=== PATIENT | female | born 1950 | race Caucasian/White ===

== ENCOUNTER → 2018-06-30 | Outpatient (CLI) | payer OTHER | LOC: FIMAGING 10:01 | PROVIDERS: ATTEND Neurological Surgery | DX: M51.16 Intervertebral disc disorders with radiculopathy, lumbar region (principal); M48.062 Spinal stenosis, lumbar region with neurogenic claudication; M51.27 Other intervertebral disc displacement, lumbosacral region; M51.36 Other intervertebral disc degeneration, lumbar region; M43.16 Spondylolisthesis, lumbar region ==

== ENCOUNTER 2018-07-12 10:31 | Inpatient (IN) | payer OTHER ==
--- NOTE | 2018-07-12 06:42 | PDHPUP ---
History & Physical Update H&P update statement: This history and physical update is based on an assessment of the patient which was completed after admission or registration (within 24 hours), but prior to the surgery/procedure. H&P update: H&P reviewed & patient examined, no change in patient's condition since H&P completed
[2018-07-12] MEDS ORDERED: GABAPENTIN 300 MG CAP PO ONE (10:45)
[2018-07-12] MEDS ORDERED: ceFAZolin 2 GM/DEXTROSE 100 ML IV ONE (10:45)
[2018-07-12] MEDS ORDERED: ACETAMINOPHEN 500 MG TAB PO ONE (10:45)
[2018-07-12] MEDS ORDERED: LIDOCAINE 1% 2 ML INJ ID PRN (10:46)
[2018-07-12] MEDS ORDERED: LR 1,000 ML IV ONE (10:46)
[2018-07-12] MEDS ORDERED: MIDAZOLAM 2 MG/2 ML VIAL IVP ONE (11:39)
--- NOTE | 2018-07-12 11:39 | PDANEPAE ---
ANE History of Present Illness low back pain right radicular pain ANE Past Medical History - Cardiovascular History Hx Hypertension: Yes Hx Arrhythmias: No Hx Chest Pain: No Hx Coronary Artery / Peripheral Vascular Disease: No Hx CHF / Valvular Disease: No Hx Palpitations: No - Pulmonary History Hx COPD: No Hx Asthma/Reactive Airway Disease: No Hx Recent Upper Respiratory Infection: No Hx Oxygen in Use at Home: No Hx Sleep Apnea: No Sleep Apnea Screening Result - Last Documented: Negative - Neurologic History Hx Cerebrovascular Accident: No Hx Seizures: No Hx Dementia: No - Endocrine History Hx Diabetes: No Hypothyroid: No Hyperthyroid: No - Renal History Hx Renal Disorders: No - Liver History Hx Hepatic Disorders: No - Neurological & Psychiatric Hx Hx Neurological and Psychiatric Disorders: Yes Neurological / Psychiatric History Comment: n/t in right leg, sciatica - Cancer History Hx Cancer: Yes Cancer History Comment: melanoma mohs procedure - Congenital Disorder History Hx Congenital Disorders: No - GI History Hx Gastrointestinal Disorders: No - Other Health History Other Health History: none - Chronic Pain History Chronic Pain: Yes (chronic back pain) - Surgical History Prior Surgeries: none in last 5 yrs. lumbar lami/cholecytectomy 2006 ANE Review of Systems Review of systems is: negative Review of Systems: - Exercise capacity Exercise capacity: >=4 METS METS (RN): 5 METS ANE Patient History - Allergies Allergies/Adverse Reactions: No Allergies Allergy (Verified 07/07/18 15:48) - Home Medications Home Medications: Acetaminophen [Tylenol ES 500 mg (*)] 500 mg PO Q6HRS PRN 07/07/18 [Last Taken 07/12/18 01:00] Atenolol [Tenormin 25 mg (*)] 25 mg PO DAILY 07/07/18 [Last Taken 07/12/18 07:00 ] Gabapentin [Neurontin 300 MG (*)] 300 mg PO HS 07/07/18 [Last Taken 07/11/18 19: 00] Hydrocodone/APAP 5/325 [Crane 5/325 (*)] 1 tab PO Q6HRS PRN 07/07/18 [Last Taken 07/12/18 01:00] Leflunomide [Arava 20 mg (*)] 20 mg PO DAILY 07/07/18 [Last Taken 07/04/18] Meloxicam 7.5 mg PO BID PRN 07/07/18 [Last Taken 1 Week Ago ~07/05/18] Tofacitinib Citrate [Xeljanz] 5 mg PO BID 07/07/18 [Last Taken 07/09/18] Tretinoin [Retin-A] 1 delia TP HS 07/11/18 [Last Taken 1 Week Ago ~07/05/18] - NPO status NPO Status: no food or drink >8 hours NPO Since - Liquids (Date): 07/12/18 NPO Since - Liquids (Time): 08:00 NPO Since - Solids (Date): 07/12/18 NPO Since - Solids (Time): 01:00 - Anes Hx Anes Hx: no prior problems - Smoking Hx Smoking Status: Never smoked - Alcohol Use Alcohol Use: Occasionally (2/wk) - Family Anes Hx Family Anes Hx: none Family Hx Anesthesia Complications: none ANE Labs/Vital Signs - Vital Signs Vital Signs: reviewed preoperatively; see RN documention for details Blood Pressure: 163/98 Heart Rate: 62 Respiratory Rate: 16 O2 Sat (%): 95 Height: 175.26 cm Weight: 68.946 kg ANE Physical Exam - Airway Neck exam: FROM Mallampati Score: Class 2 Mouth exam: normal dental/mouth exam - Pulmonary Pulmonary: no respiratory distress - Cardiovascular Cardiovascular: regular rate and rhythym - ASA Status ASA Status: II ANE Anesthesia Plan Anesthesia Plan: general endotracheal anesthesia
[2018-07-12] MEDS ORDERED: HYDROCODONE/APAP 5/325 TAB PO PRN (11:52)
[2018-07-12] MEDS ORDERED: NALOXONE HCL 0.4 MG/ML INJ IVP PRN ×2 (11:54→15:59)
[2018-07-12] MEDS ORDERED: ONDANSETRON 4 MG/2 ML VIAL IVP PRN ×2 (11:54→15:59)
[2018-07-12] MEDS ORDERED: ZOLPIDEM TARTRATE 5 MG TAB PO PRN (11:54)
[2018-07-12] MEDS ORDERED: POLYETHYLENE GLYCOL 3350 17 GM PKT PO PRN (11:54)
[2018-07-12] MEDS ORDERED: morphINE PCA 30 MG/30 ML PCA IV PRN (11:54)
[2018-07-12] MEDS ORDERED: HYDROmorphONE/DILAUDID 1 MG/ML INJ IVP PRN ×2 (11:54→15:59)
[2018-07-12] MEDS ORDERED: BISACODYL 10 MG SUPP PR PRN (11:54)
[2018-07-12] MEDS ORDERED: ONDANSETRON DISINTEGRATING 4 MG TAB PO PRN (11:54)
[2018-07-12] MEDS ORDERED: diphenhydrAMINE 25 MG CAP PO PRN (11:54)
[2018-07-12] MEDS ORDERED: LACTULOSE 20 GM/30 ML UDCUP PO PRN (11:54)
[2018-07-12] MEDS ORDERED: MAGNESIUM HYDROXIDE 30 ML UDCUP PO PRN (11:54)
[2018-07-12] MEDS ORDERED: NS 1,000 ML IV SCH (12:00)
[2018-07-12] MEDS ORDERED: BUPIVACAINE 0.25% 30 ML SDV ONE (12:02)
[2018-07-12] MEDS ORDERED: EPINEPHrine 1 MG/ML INJ ONE (12:03)
[2018-07-12] MEDS ORDERED: THROMBIN (BOVINE) 5,000 UNIT VIAL TP ONE (12:03)
[2018-07-12] MEDS ORDERED: BACITRACIN 50,000 UNITS/10 ML SYR IRR ONE (12:04)
[2018-07-12] MEDS ORDERED: fentaNYL 100 MCG/2 ML INJ ONE ×3 (12:13→19:40)
[2018-07-12] MEDS ORDERED: PROPOFOL 200 MG/20 ML VIAL ONE (12:13)
[2018-07-12] MEDS ORDERED: DEXAMETHASONE 4 MG/ML VIAL ONE (12:13)
[2018-07-12] MEDS ORDERED: ROCURONIUM 100 MG/10 ML VIAL ONE (12:13)
[2018-07-12] MEDS ORDERED: LIDOCAINE 2% 2 ML INJ ONE (12:13)
[2018-07-12] MEDS ORDERED: REMIFENTANIL HCL 1 MG VIAL ONE ×2 (12:13→15:22)
[2018-07-12] MEDS ORDERED: PROPOFOL/EMULSION 500 MG/50 ML BOTTLE IV ONE ×2 (12:13→15:22)
[2018-07-12] MEDS ORDERED: CHLORHEXIDINE GLUC HIBICLENS 118 ML BTL TP ONE (12:18)
[2018-07-12] MEDS ORDERED: ACETAMINOPHEN 500 MG TAB PO SCH (14:00)
--- NOTE | 2018-07-12 14:55 | PDMN ---
Medical Necessity Medical necessity: [facility] [place] S820 CPT 74075 Lumbar Fusion, MC IP only, 68 y/o s/p L2/ 3 TLIF Lum Patel Fusion w/ Stealth.
[2018-07-12] MEDS ORDERED: ONDANSETRON 4 MG/2 ML VIAL ONE (15:32)
[2018-07-12] MEDS ORDERED: HYDROmorphONE/DILAUDID 2 MG/ML INJ ONE (15:32)
--- NOTE | 2018-07-12 15:57 | POSTOPPROG ---
Post Op Note Date of Operation: 07/12/18 Surgeon: Chrissy Pisano [employer] T[employer] Pumper: Za Anesthesiologist: Alex Anesthesia: GET(General Endotracheal), Local (Specify) Pre-op Diagnosis: Lumbar stenosis L2/3 Post-op Diagnosis: S/p TLIF L2/3 Indication: radiculopathy, stenosis, pain Procedure: TLIF L2/3 Findings: none Inf/Abcess present in the surg proc area at time of surgery?: No Depth: Deep Incisional (Fascial) EBL: 100-500 Total fluids administered: see anesthesia record Complications: none Drains: Wade Noel
[2018-07-12] MEDS ORDERED: oxyCODONE IR 5 MG TAB PO PRN (15:59)
[2018-07-12] MEDS ORDERED: DIAZEPAM 5 MG/ML 1 ML SYR IVP PRN (15:59)
[2018-07-12] MEDS ORDERED: PROMETHAZINE HCL 25 MG/ML INJ IVP PRN (15:59)
--- NOTE | 2018-07-12 16:00 | SOAPPROG ---
SOAP Progress Note Assessment/Plan: Post Op Visit: S: Awake and alert. NAD. Pt with expected lower back pain O: AFVSS/PERRLA/EOMI no droop CN 2-12 grossly intact +lt touch 5/5 BUE/BLE = CDI ESTHER in place A/P: 68 yo female that is s/p TLIF at L2/3 -orders in place -call with any questions or concerns -pt understands and agrees -seen by Dr Pisano as well Objective: Vital Signs Temp Pulse Resp BP Pulse Ox 36.9 C 62 16 163/98 H 95 07/12/18 11:09 07/12/18 11:39 07/12/18 11:39 07/12/18 11:39 07/12/18 11:39 ICD10 Worksheet Patient Problems: Problems Problem Status Onset Arthrodesis status Acute Lumbar radicular pain Acute Lumbar stenosis Acute - ICD10 Problem Qualifiers (1) Lumbar stenosis (2) Lumbar radicular pain (3) Arthrodesis status
--- NOTE | 2018-07-12 16:02 | POSTANESTH ---
Post Anesthetic Evaluation Cardiovascular Status: Normal, Stable Respiratory Status: Normal, Stable Level of Consciousness/Mental Status: Can Participate in Eval Pain Control: Adequate, Prn Tx Ordered Nausea/Vomiting Control: Adequate, Prn Tx Ordered Complications Possibly Related to Anesthesia: None Noted
[2018-07-12] MEDS: fentaNYL 100 MCG/2 ML INJ IVP PRN ×3 (16:20→19:42)
--- NOTE | 2018-07-12 17:27 | GOP ---
[f rep st] OPERATIVE REPORT DATE OF OPERATION: 07/12/2018 SURGEON: Virgie Pisano MD LEAD HOUSEKEEPER: Tha Mendenhall PA-C. PREOPERATIVE DIAGNOSIS: Lumbar instability, L2-3. Recurrent lumbar disk herniation L2-3, prior lami nectomy L2-3, lumbar degenerative disk disease, L2-3. POSTOPERATIVE DIAGNOSIS: Lumbar instability, L2-3. Recurrent lumbar disk herniation L2-3, prior quinones inectomy L2-3, lumbar degenerative disk disease, L2-3. PROCEDURE PERFORMED: Posterolateral intervertebral arthrodesis with right-sided decompression, L2-3 (24124), placement of biomechanical intervertebral device L2-3, same-incision bone graft harvest, pos terior nonsegmental instrumentation across a single interspace, L2-3, spinal stereotactic microscope. FINDINGS: Consistent with diagnosis. There is a bilateral fracture of the inferior articular proces s of L2. SPECIMENS: None. ESTIMATED BLOOD LOSS: 100 mL. INDICATIONS: Ms. Herrera is a 68-year-old woman underwent an uncomplicated L2-3 laminectomy with preser vation of her spinous process and the rostral lamina of L2 several years ago with good clinical resul t. She developed acute severe right lower extremity radiculopathy and MRI demonstrated profound facet ar thropathy at L2-3. She also had facet arthropathy and signs of stenosis that were significant at L3- 4 and early signs that were similar at L4-5. There was no significant compression in my opinion at L 4-5. She also had a right-sided disk herniation at L2-3 and she prominently had a right lumbosacral radiculopathy and I suggested a single-level instrumented fusion for this level. The risk of nerve injury, spinal fluid leak, continued symptoms, adjacent segmental disease, and in p articular, the need for possible extension in the fusion to the L3-4 level in the near future was dis cussed. I did not think it was symptomatic currently and I did not think that she needed a 2-level s urgery as her initial approach. The risk of screw and hardware malposition, malfunction, was also di scussed, and she knew there was a chance she may not improve with surgery. She wanted to proceed sindhu pite these risks. DESCRIPTION OF PROCEDURE: Patient was taken to the operating room, placed in supine position. Gener al anesthesia was begun. She was flipped prone onto the Wade table. Care was taken to pad all po ints of contact. Her back was sterilely prepped and draped in the usual fashion. A localizing x-ray was taken. She had a prior incision that measured about 15 mm in length above the L2-3 level. We used this incision, extended it for a total length about 5 cm above L2-3. The subcutaneous tissue was dissected using Bovie cautery down to the fascia and subperiosteal dissection was made down the inferior lamina of L1, the rostral lamina of L2, as well as the rostral lamina of L3. The inferior s pinous process of L2 was removed and midline lami had been performed. We shot localizing x-rays and denuded the bilateral facet joints at L2-3 and, so doing, we appreciated that the IAP of L2 was fract ured on both sides as we denuded this area. We attached the Stealth reference frame and using frame the Stealth stereotaxy, placed pedicle screws bilaterally at L2 and L3. Put 35 mm makenzie on the right, a 40 mm makenzie on the left, and we distracted on the right-hand side, and reduced the degenerative tilt at L2-3 on the right-hand side. We then adjusted our self-retaining retractor after checking AP and lateral x-rays and then removed a ll the soft tissue at the bone at L2-3. We decorticated the abnormal pars interarticularis on the le ft-hand side at L2 as well as the remaining pars interarticularis of L2 on the left-hand side. We di d not remove the floating inferior articular process of L2 on the left-hand side. We simply left it in place. We decorticated all this bone for a solid posterolateral arthrodesis. We then turned our attention to the right-hand side, wherein this circumstance, we completely removed the right entire i nferior articular process of L2. We carefully harvested this bone for autologous grafting purposes a nd then we drilled the SAP of L3 away, opening the neural foramen. There was significant scar tissue on the right-hand side from the prior lami. We decompressed the ne ural foramen and worked our way down to the top of the L3 pedicle and then medially around the medial pedicle border and did a lateral recess decompression. We worked our way out farther laterally into the foramen and found the exiting L2 nerve root. We then followed this nerve root medially toward t he thecal sac and got a great lateral recess decompression. We then incised the epidural veins above the L2-3 disk. Removed the disk and the cartilaginous endplates to create our arthrodesis. We then took a ball-tip probe and put it underneath the L2 root and swept rostrally underneath the thecal sa c and we delivered several large free fragments of disk out from underneath the thecal sac and the un derlying L2 nerve root. I was very happy with this. We then placed bone and BMP into the disk space, followed by expandable implant which is inserted und er fluoroscopic guidance and then expanded. After doing this, we then swept again underneath the L2 nerve root. I felt, though, that there might be an additional fragment that I appreciated, as I was inserting the implant and, indeed, we did deliver another very large fragment out from underneath the axilla of the L2 root where it met the thecal sac and there was really great decompression of the L2 root. We then placed a subfascial drain. We ensured all the cap screws had been torqued to company specification and then closed the incision in multiple layers using Vicryl sutures. A running PDS w as placed in the skin itself. There were no complications. SURGEON: Virgie Pisano MD. COMPLICATIONS: None. INSTRUMENTATION USED: Medtronic Elevate, 7 x 28 mm cage. Medtronic Solera 4.75 system with 5.5 mm s crews at L2 and 6.5 mm screws at L3. COMPLICATIONS: None. /[id number]/MODL
[2018-07-12] MEDS: ceFAZolin 2 GM/DEXTROSE 100 ML IV SCH (21:27)
[2018-07-12] MEDS: SENNOSIDES/DOCUSATE SODIUM TAB PO SCH (21:31)
[2018-07-12] MEDS: FAMOTIDINE 20 MG TAB PO SCH (21:31)
[2018-07-12] MEDS: GABAPENTIN 300 MG CAP PO SCH (21:31)
[2018-07-12] MEDS: Tofacitinib Citrate [Xeljanz] 5 MG PO SCH (21:32)
[2018-07-12] MEDS: Tretinoin [Retin-A] 1 APP TP SCH (21:32)
[2018-07-12] MEDS: METHOCARBAMOL 750 MG TAB PO PRN (21:54)
[2018-07-12] MEDS: oxyCODONE IR 5 MG TAB PO PRN ×2 (23:16→23:44)
[2018-07-13] MEDS: oxyCODONE IR 5 MG TAB PO PRN ×4 (03:20→22:41)
[2018-07-13] MEDS: METHOCARBAMOL 750 MG TAB PO PRN ×4 (03:20→22:41)
[2018-07-13] MEDS: ceFAZolin 2 GM/DEXTROSE 100 ML IV SCH (04:51)
[2018-07-13] MEDS: ATENOLOL 25 MG TAB PO SCH (08:11)
[2018-07-13] MEDS: ACETAMINOPHEN 500 MG TAB PO PRN ×2 (08:12→14:27)
[2018-07-13] MEDS: FAMOTIDINE 20 MG TAB PO SCH ×2 (08:12→20:27)
[2018-07-13] MEDS: SENNOSIDES/DOCUSATE SODIUM TAB PO SCH ×2 (08:14→20:27)
[2018-07-13] MEDS: LEFLUNOMIDE 20 MG TAB PO SCH (08:14)
[2018-07-13] MEDS: Tofacitinib Citrate [Xeljanz] 5 MG PO SCH ×2 (08:14→20:29)
--- NOTE | 2018-07-13 08:33 | NEUSURGPN ---
Assessment/Plan: S: She is doing well this am, right leg pain improved, left leg with some anterior thigh pain. O: AFVSS/PERRLA/EOMI no droop CN 2-12 grossly intact +lt touch 5/5 BUE/BLE = CDI ESTHER in place A/P: 68 yo female that is s/p TLIF at L2/3 -doing well, pain well controlled -Remove ESTHER today -Continue PT/OT today -Postop x-rays later today -Dispo- Home later today vs tomorrow depending on pain/therapy work -call with any questions or concerns -Discussed with Dr. Pisano will see the pt later today as well - Physician Discussed Patient with : [facility] Physical Exam - Vitals, I&O, Labs I and O 07/12/18 07/13/18 07/14/18 05:59 05:59 05:59 Intake Total 1880 789 Output Total 370 410 Balance 1510 379 Weight 68.946 kg Intake: Oral (ml) 1080 IV Intake (ml) 800 IV Infused (ml) 789 Ns 1,000 ml @ 75 mls/hr 589 IV CONT ОЛЕГ Rx#: [id number] ceFAZolin 2 GM/DEXTROSE 200 100 ml @ 200 mls/hr IV Q8H ОЛЕГ Rx#:[id number] Output: Urine (ml) 300 400 Toilet 300 400 Estimated Blood Loss (ml) 50 ESTHER Drain Output (ml) 20 10 Back Wade Noel 20 10 Other: Number of Voids Toilet 1 Vital Signs Temp Pulse Resp BP Pulse Ox 36.7 C 73 16 121/79 H 97 07/13/18 08:00 07/13/18 08:11 07/13/18 08:00 07/13/18 08:11 07/13/18 08:00 ICD10 Worksheet Patient Problems: Problems Problem Status Onset Arthrodesis status Acute Lumbar radicular pain Acute Lumbar stenosis Acute
--- NOTE | 2018-07-13 11:39 | ASMTCMCOM ---
CM Note CM Note Notes: Patient is POD #1 TLIF at L2/3. Per OT note, she is doing well except for some post-operative hypotension. PT to see. Patient lives with her who is able to assist. She will likely discharge without any needs, but Case Management is available if this changes. Date Signed: 07/13/2018 10:45 AM Electronically Signed By:Monique Ryan RN
[2018-07-13] MEDS: GABAPENTIN 300 MG CAP PO SCH (20:27)
[2018-07-13] MEDS: Tretinoin [Retin-A] 1 APP TP SCH (20:30)
[2018-07-14] MEDS: oxyCODONE IR 5 MG TAB PO PRN ×3 (03:13→11:59)
[2018-07-14] MEDS: METHOCARBAMOL 750 MG TAB PO PRN (06:34)
--- NOTE | 2018-07-14 08:17 | NEUSURGPN ---
Assessment/Plan: A/P: 68 yo female that is s/p TLIF at L2/3 POD#2 -doing well, pain well controlled -ESTHER is out -Continue PT/OT today -Postop x-rays show stable hardware -Dispo- Home later today -call with any questions or concerns -Discussed with Dr. Pisano Subjective: Pt resting in bed, working with PT. Doing well and wants to go home today Objective: AAOx3 NAD VSS MAEx4 Motor 5/5 BLE Incision dressed cdi +LT Urinary Catheter in Place: No - Physician Discussed Patient with : [facility] Physical Exam - Vitals, I&O, Labs I and O 07/13/18 07/14/18 07/15/18 05:59 05:59 05:59 Intake Total 1880 3989 Output Total 370 3510 Balance 1510 479 Weight 68.946 kg Intake: Oral (ml) 1080 3200 IV Intake (ml) 800 IV Infused (ml) 789 Ns 1,000 ml @ 75 mls/hr 589 IV CONT ОЛЕГ Rx#: [id number] ceFAZolin 2 GM/DEXTROSE 200 100 ml @ 200 mls/hr IV Q8H ОЛЕГ Rx#:[id number] Output: Urine (ml) 300 3500 Toilet 300 3500 Estimated Blood Loss (ml) 50 ESTHER Drain Output (ml) 20 10 Back Wade Noel 20 10 Other: Intake Quantity Yes Sufficient Number of Voids Toilet 1 1 Number of Stools Toilet 1 Vital Signs Temp Pulse Resp BP Pulse Ox 36.7 C 74 16 131/79 H 94 07/14/18 04:00 07/14/18 04:00 07/14/18 04:00 07/14/18 04:00 07/14/18 04:00 ICD10 Worksheet Patient Problems: Problems Problem Status Onset Arthrodesis status Acute Lumbar radicular pain Acute Lumbar stenosis Acute
[2018-07-14] MEDS: FAMOTIDINE 20 MG TAB PO SCH (08:59)
[2018-07-14] MEDS: LEFLUNOMIDE 20 MG TAB PO SCH (08:59)
[2018-07-14] MEDS: SENNOSIDES/DOCUSATE SODIUM TAB PO SCH (08:59)
[2018-07-14] MEDS: ATENOLOL 25 MG TAB PO SCH (08:59)
[2018-07-14] MEDS: Tofacitinib Citrate [Xeljanz] 5 MG PO SCH (09:00)
[2018-07-14 09:03] VITALS: BP 118/77
[2018-07-15] MEDS ORDERED: ENOXAPARIN 40 MG/0.4 ML SYR SC SCH (09:00)
== END 2018-07-14 12:51 | disposition home or self-care (01) | DRG 460 ==
LOC: F3N 10:31 → F3E 11:08 → F3N 20:19
PROVIDERS: ADMIT Neurological Surgery; ATTEND Neurological Surgery
PROC: 0SG00AJ Fusion of Lumbar Vertebral Joint with Interbody Fusion Device, Posterior Approach, Anterior Column, Open Approach (ICD-10-PCS; principal; 2018-07-12 12:30)
PROC: 3E0U0GB Introduction of Recombinant Bone Morphogenetic Protein into Joints, Open Approach (ICD-10-PCS; principal; 2018-07-12 12:30)
PROC: 01NB0ZZ Release Lumbar Nerve, Open Approach (ICD-10-PCS; principal; 2018-07-12 12:30)
PROC: 0ST20ZZ Resection of Lumbar Vertebral Disc, Open Approach (ICD-10-PCS; principal; 2018-07-12 12:30)
DX: M51.16 Intervertebral disc disorders with radiculopathy, lumbar region (principal); M53.2X6 Spinal instabilities, lumbar region; M05.9 Rheumatoid arthritis with rheumatoid factor, unspecified; I10 Essential (primary) hypertension; E78.5 Hyperlipidemia, unspecified; M85.80 Other specified disorders of bone density and structure, unspecified site
CPT/HCPCS: 97116-GP; 97161-GP; 97165-GO; 97535-GO; C1713; G8978-GP-CJ; G8979-GP-CI; G8987-GO-CJ; G8988-GO-CI; G8989-GO-CI; J0171; J0690; J1100; J1170; J2250; J2405; J2704; J3010

== ENCOUNTER → 2018-08-22 | Outpatient (CLI) | payer OTHER | LOC: FIMAGING 10:31 | PROVIDERS: ATTEND Nurse Practitioner | DX: Z09 Encounter for follow-up examination after completed treatment for conditions other than malignant neoplasm (principal); Z98.1 Arthrodesis status ==

== ENCOUNTER → 2018-12-12 | Outpatient (CLI) | payer OTHER | LOC: FIMAGING 09:14 | PROVIDERS: ATTEND Nurse Practitioner | DX: M54.16 Radiculopathy, lumbar region (principal); M53.3 Sacrococcygeal disorders, not elsewhere classified; Z98.1 Arthrodesis status ==